=== PATIENT | male | born 1975 | race Caucasian/White ===

== ENCOUNTER → 2017-05-12 | Outpatient (CLI) | payer MEDICAID | LOC: BRMIMAGING 14:54 | PROVIDERS: ATTEND Registered Nurse | DX: M19.072 Primary osteoarthritis, left ankle and foot (principal) | CPT/HCPCS: 73630-PO ==

== ENCOUNTER → 2018-03-01 | Outpatient (CLI) | payer MEDICAID | LOC: BRMIMAGING 10:54 | PROVIDERS: ATTEND Registered Nurse | DX: M25.511 Pain in right shoulder (principal) | CPT/HCPCS: 73030-PO ==